=== PATIENT | female | born 1980 | race Caucasian/White ===

== ENCOUNTER → 2017-03-29 | Outpatient (CLI) | payer OTHER | LOC: CIMAGING 13:21 | PROVIDERS: ATTEND Family Medicine | DX: N64.4 Mastodynia (principal) | CPT/HCPCS: G0204 ==

== ENCOUNTER → 2017-10-23 | Outpatient (CLI) | payer OTHER ==
[~2017-10-23] MED LIST: GADOBUTROL 10 ML VIAL IVP ONE
== END ==
LOC: FIMAGING 06:39
PROVIDERS: ATTEND Physician Assistant Medical
DX: R42 Dizziness and giddiness (principal); R43.1 Parosmia; R51 Headache
CPT/HCPCS: A9585

== ENCOUNTER → 2017-10-24 | Outpatient (CLI) | payer OTHER ==
--- NOTE | 2017-10-25 10:59 | CPEEG ---
[f rep st] ELECTROENCEPHALOGRAM DATE OF STUDY: 10/24/2017 INTERPRETATION: Normal EEG during wakefulness and sleep. There were no potentially epileptogenic ab normalities present in the recording. REPORT: This EEG contains 10-11 Hz alpha activity over the posterior head regions. There was no abn ormal activation at rest, during photic stimulation, or hyperventilation. The patient became drowsy and fell asleep during the study. There was no abnormal activation during drowsiness, sleep, or duri ng times of arousal. /[id number]/MODL
== END ==
LOC: FCPNEURO 12:51
PROVIDERS: ATTEND Psychiatry & Neurology Neurology
DX: R43.1 Parosmia (principal); R51 Headache; R42 Dizziness and giddiness

== ENCOUNTER → 2018-09-16 | Outpatient (CLI) | payer OTHER | LOC: CIMAGING 14:55 | PROVIDERS: ATTEND Family Medicine | DX: R07.9 Chest pain, unspecified (principal); R53.83 Other fatigue | CPT/HCPCS: 71046-PO ==